=== PATIENT | male | born 1955 | race Caucasian/White ===

== ENCOUNTER → 2021-08-02 07:32 | Outpatient (CLI) | payer OTHER, SELFPAY ==
--- NOTE | ~2021-08-02 | MR_ITS ---
EXAMINATION: MR foot RT wo con DATE: 08/02/2021 08:49 INDICATION: Right foot pain TECHNIQUE: Magnetic resonance imaging (MRI) of the right fore/mid foot was performed without intraven ous contrast. Sequences included sagittal T1-weighted FSE, sagittal fluid sensitive FSE STIR, coronal PD-weighted FS FSE, coronal T1-weighted FSE, axial PD-weighted FS FSE, and axial PD-weighted FSE. COMPARISON: Radiographs dated 06/09/2018 FINDINGS: Again seen is chronic lateral angulation of the second distal interphalangeal joint. Alignment is oth erwise normal. Low signal intensity bone island at the talar dome. No fracture or pathologic marrow r eplacing process. Polyarticular osteoarthritis, severe with subarticular cystic change and prominent edema at both sides of the second tarsal metatarsal joint. Moderate to severe osteoarthritis with sma ll regions of subarticular edema and minimal cystic change at the first and third tarsal metatarsal j oints. Mild to moderate osteoarthritis at the fourth and fifth tarsal metatarsal joints and mild at t he first metatarsophalangeal joint. Lisfranc ligament complex as well as the collateral ligament comp chaz at the metatarsophalangeal joints remain intact. The visualized portions of the flexor and extens or tendons are normal. Heterotopic ossification at the anterior aspect of the superficial deltoid lig ament likely sequela of chronic sprain. There is mild reactive soft tissue edema in the midfoot cente red about the second tarsal metatarsal joint. No joint effusions, tenosynovitis, abscess or other abn ormal fluid collections. IMPRESSION: 1. 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 Reviewed, dictated and finalized at location A. IMPRESSION: 1. Polyarticular osteoarthritis in the right midfoot, severe at the second tars al metatarsal joint.
== END ==
PROVIDERS: PCP Family Medicine; Visit Provider Family Medicine
DX: M19.071 Primary osteoarthritis, right ankle and foot (principal)
CPT/HCPCS: 73718

== ENCOUNTER → 2022-04-11 09:40 | Outpatient (CLI) | payer OTHER, SELFPAY ==
--- NOTE | ~2022-04-11 | XR_ITS ---
XR foot RT min 3V DATE: 04/11/2022 10:25 INDICATION: Right foot pain TECHNIQUE: 4 views COMPARISON: None FINDINGS: There is minimal plantar calcaneal enthesopathy. There is osteophyte is at the tibiotalar joint as well as tarsal and tarsometatarsal joints. Old healed fracture deformity of the proximal phalanx of the fourth toe. No recent fracture is evident. There is lateral subluxation at the distal interphalangeal joint of th e second toe. IMPRESSION: Polyarticular osteoarthritis Minimal plantar calcaneal enthesopathy Lateral subluxation at the distal interphalangeal joint of the second toe Old fracture deformity of proximal phalanx of fourth toe Reviewed, dictated and finalized at location A.
== END ==
PROVIDERS: PCP Family Medicine; Visit Provider Family Medicine
DX: M19.071 Primary osteoarthritis, right ankle and foot (principal); M77.31 Calcaneal spur, right foot; S93.134A Subluxation of interphalangeal joint of right lesser toe(s), initial encounter
CPT/HCPCS: 73630

== ENCOUNTER → 2022-11-01 12:08 | Outpatient (CLI) | payer MEDICARE, OTHER, SELFPAY ==
--- NOTE | ~2022-11-01 | XR_ITS ---
Left Shoulder Technique: AP and axillary views were obtained. Clinical History: Pain Findings: No fracture or dislocation is seen. There is mild to moderate degenerative change of the AC joint. Glenohumeral joint demonstrates moderate to moderate arthritis as well.. Soft tissues are unr emarkable. Impression: Moderate degenerative change of the glenohumeral and acromioclavicular joints. No fracture or dislocation. Reviewed, dictated and finalized at location M. 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 No fracture or dislocation.
== END ==
PROVIDERS: PCP Family Medicine; Visit Provider Family Medicine
DX: M25.512 Pain in left shoulder (principal); M19.012 Primary osteoarthritis, left shoulder
CPT/HCPCS: 73030

== ENCOUNTER → 2023-09-14 07:29 | Outpatient (CLI) | payer MEDICARE, OTHER, SELFPAY ==
--- NOTE | ~2023-09-14 | US_ITS ---
EXAMINATION: US aorta [facility] DATE: 09/14/2023 08:00 INDICATION: Abdominal aortic aneurysm screening. TECHNIQUE: Grayscale, color Doppler, and pulsed Doppler images of the aorta and common iliac arteries were obtained. COMPARISON: None. FINDINGS: The aorta is normal in caliber. The right common iliac artery is normal in caliber. The left common i liac artery is normal in caliber. IMPRESSION: 1. No abdominal aortic aneurysm. Reviewed, dictated and finalized at location A. 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
== END ==
PROVIDERS: PCP Family Medicine; Visit Provider Family Medicine
DX: Z13.6 Encounter for screening for cardiovascular disorders (principal); I48.91 Unspecified atrial fibrillation; Z87.891 Personal history of nicotine dependence
CPT/HCPCS: 76706

== ENCOUNTER 2024-08-28 10:42 | Outpatient (CLI) | payer MEDICARE, OTHER, SELFPAY ==
--- NOTE | ~2024-08-28 | MMUS_ITS ---
EXAMINATION: MM diagnostic valencia RT w ethan, US breast RT limited HISTORY: Gynecomastia TECHNIQUE: Additional 3-D tomosynthesis images of the right breast were performed and synthetic 2-D i mages were generated. Comparison left MLO view performed. CAD analysis was submitted and interpreted. High resolution Limited right breast ultrasound was performed. COMPARISON: None BREAST PARENCHYMAL COMPOSITION: Not dense: There are scattered areas of fibroglandular density. FINDINGS: MAMMOGRAPHIC FINDINGS: There is asymmetric tissue in the subareolar location the right breast without discrete mass, likely asymmetric gynecomastia. No suspicious calcifications or architectural distortion. ULTRASOUND: Limited right breast ultrasound: There is heterogeneous hypoechoic soft tissue in the subareolar loca tion the right breast in the area of palpable concern, likely fibroglandular content. No discrete mas s. IMPRESSION: 1. Probable benign asymmetric gynecomastia on the right. No discrete mass. 2. Recommend 6 month follow-up diagnostic right mammogram BI-RADS category 3, probably benign findings. Reviewed, dictated and finalized at location B. IMPRESSION: 1. Probable benign asymmetric gynecomastia on the right. No discrete mass. 2. Recommend 6 month follow-up diagnostic right mammogram BI-RADS category 3, probably benign findings.
== END 2024-08-28 10:43 | disposition home or self-care (01) ==
PROVIDERS: PCP Student in an Organized Health Care Education/Training Program; Visit Provider Student in an Organized Health Care Education/Training Program
DX: N62 Hypertrophy of breast (principal)
CPT/HCPCS: 76642; 77061; 77065; G0279

== ENCOUNTER 2025-01-01 10:10 | Outpatient (CLI) | payer MEDICARE, OTHER, SELFPAY | END 2025-01-01 10:11 | disposition home or self-care (01) | LOC: MICIMG 10:13 | PROVIDERS: PCP Family Medicine; Visit Provider Nurse Practitioner Family | DX: M54.41 Lumbago with sciatica, right side (principal); M16.0 Bilateral primary osteoarthritis of hip; M62.89 Other specified disorders of muscle | CPT/HCPCS: 72100; 73521 ==

== ENCOUNTER 2025-01-11 07:00 | Outpatient (CLI) | payer MEDICARE, OTHER, SELFPAY ==
--- NOTE | ~2025-01-11 | MR_ITS ---
MRI of the lumbar spine Clinical History: Pain, sciatica Technique: Axial T2-weighted images, and sagittal T1-weighted, T2-weighted, and T2 fat-sat images wer e acquired. Findings: No acute fracture. There is suspected bilateral L5 pars interarticularis defects, with 9 mm anterolisthesis of L5 over S1. No suspicious bone marrow signal abnormality seen. At L1-L2, there is 2 mm retrolisthesis. There is advanced degenerative disc narrowing. There is mild disc bulge with moderate to advanced facet arthropathy. There is minimal central canal stenosis and m ild to moderate bilateral neural foraminal narrowing. At L2-L3, there is minimal grade 1 retrolisthesis with severe degenerative disc narrowing. There is m ild disc bulge with moderate facet arthropathy. There is moderate central canal stenosis/thecal sac c ompression. There is severe bilateral neural foraminal compromise. L3-L4, there is grade 1 retrolisthesis. There is moderate degenerative disc narrowing with diffuse di sc bulge and moderate facet arthropathy. There is moderate to severe spinal canal stenosis/thecal sac compression. There is severe bilateral neural foraminal compromise. At L4-L5, there is grade 1 retrolisthesis. There is diffuse disc bulge with severe facet arthropathy. No tiana central canal stenosis. There is severe bilateral neural foraminal conference. At L5-S1, there is diffuse disc bulge/uncovering with severe facet arthropathy and moderate spinal ca nal stenosis/thecal sac compression. There is severe bilateral neural foraminal conference. Paravertebral soft tissues are unremarkable. Impression: Severe degenerative spondylosis of the lumbar spine, with multilevel neural foraminal narrowing and c anal stenosis, as detailed above. There are multilevel retrolistheses from L1 through L4. Probable bilateral L5 pars interarticularis defects, with 9 mm anterolisthesis of L5 over S1. Reviewed, dictated and finalized at location M. Impression: Severe degenerative spondylosis of the lumbar spine, with multilevel neural for aminal narrowing and canal stenosis, as detailed above. There are multilevel re trolistheses from L1 through L4. Probable bilateral L5 pars interarticularis defects, with 9 mm anterolisthesis of L5 over S1.
== END 2025-01-11 07:01 | disposition home or self-care (01) ==
PROVIDERS: PCP Family Medicine; Visit Provider Nurse Practitioner Family
DX: M54.41 Lumbago with sciatica, right side (principal); M54.42 Lumbago with sciatica, left side; M47.896 Other spondylosis, lumbar region; M48.061 Spinal stenosis, lumbar region without neurogenic claudication; M43.16 Spondylolisthesis, lumbar region
CPT/HCPCS: 72148